=== PATIENT | female | born 1980 | race Caucasian/White ===

== ENCOUNTER 2018-03-02 06:49 | Emergency (ER) | payer OTHER ==
[~2018-03-02] VITALS: Ht 157.5 cm; Wt 97.5 kg
[2018-03-02] MEDS ORDERED: AMBIEN 5 MG TABL5 M1 PO (07:04)
[2018-03-02] MEDS ORDERED: DIPHENHIST50 MG PO (07:04)
[2018-03-02 07:26] VITALS: BP 152/90
== END 2018-03-02 07:28 | disposition home or self-care (01) ==
LOC: M.ERS 06:49
DX: S01.81XA Laceration without foreign body of other part of head, initial encounter (principal); Z88.1 Allergy status to other antibiotic agents; Z88.0 Allergy status to penicillin; Z88.2 Allergy status to sulfonamides; Z88.8 Allergy status to other drugs, medicaments and biological substances; W20.8XXA Other cause of strike by thrown, projected or falling object, initial encounter; Y93.89 Activity, other specified; Y92.89 Other specified places as the place of occurrence of the external cause; Y99.8 Other external cause status